=== PATIENT | female | born 1980 | race Caucasian/White ===

== ENCOUNTER 2017-03-13 16:58 | Outpatient (CLI) | payer MEDICAID ==
[2017-03-13 17:21] LABS: HGB - HEMOGLOBIN 13.5 g/dL (12.0-16.0); MEAN CORPUSCULAR HEMOGLOBIN 29.9 pg (27.0-31.0); MEAN CORPUSCULAR HGB CONC 32.9 g/dL (32.0-36.0); MEAN CORPUSCULAR VOLUME 90.8 fL (81.0-99.0); RED BLOOD COUNT 4.51 10^6/uL (4.20-5.40); WHITE BLOOD COUNT 10.4 x10^3/uL (4.8-10.8)
[2017-03-13 17:23] LABS: BILIRUBIN,URINE NEGATIVE (NEGATIVE)
[2017-03-13 17:30] LABS: ALBUMIN/GLOBULIN RATIO 1.6 (1.0-2.2); BILIRUBIN,TOTAL 0.7 mg/dL (0.2-1.0); CALCIUM 8.9 mg/dL (8.5-10.3); CREATININE 0.7 mg/dL (0.4-1.0); POTASSIUM 3.7 mmol/L (3.5-5.0); TOTAL PROTEIN 7.5 g/dL (6.7-8.2)
[2017-03-13 18:03] LABS: WBC,URINE 0-3 /HPF (0-5)
== END 2017-03-13 16:59 | disposition home or self-care (01) ==
LOC: LAB 16:58
PROVIDERS: ATTEND Obstetrics & Gynecology
DX: N92.1 Excessive and frequent menstruation with irregular cycle (principal)
CPT/HCPCS: 36415; 80053; 81001; 84443

== ENCOUNTER 2017-03-21 07:39 | Outpatient (CLI) | payer MEDICAID | END 2017-03-21 07:40 | disposition home or self-care (01) | LOC: DI 07:39 | PROVIDERS: ATTEND Obstetrics & Gynecology | DX: Z53.9 Procedure and treatment not carried out, unspecified reason (principal) ==

== ENCOUNTER 2017-03-21 07:39 | Outpatient (CLI) | payer MEDICAID ==
--- NOTE | 2017-03-21 10:17 | Ultrasound Report ---
TRANSVAGINAL PELVIC ULTRASOUND: 03/21/2017 CLINICAL INDICATION: Pain, leiomyoma. TECHNIQUE: As requested, only transvaginal imaging was performed. FINDINGS: The uterus is anteverted, measuring 10.5 x 7.1 x 6.1 cm. The endometrial echo complex measures 7 mm. The myometrium appears mildly heterogeneous, but no discrete leiomyoma is appreciated. The ovaries are unremarkable, with the right measuring 2.5 x 2.2 x 2.2 cm, and the left measuring 2.8 x 2.6 x 2.2 cm. No free fluid is present. IMPRESSION: MILDLY HETEROGENEOUS MYOMETRIUM, BUT NO DISCRETE LEIOMYOMA IS IDENTIFIED. JOB #: [id number] EXT JOB #: [id number] [facility]
== END 2017-03-21 07:40 | disposition home or self-care (01) ==
LOC: DI 07:39
PROVIDERS: ATTEND Obstetrics & Gynecology
DX: D25.9 Leiomyoma of uterus, unspecified (principal)
CPT/HCPCS: 76830

== ENCOUNTER 2017-05-30 16:19 | Outpatient (CLI) | payer MEDICAID | END 2017-05-30 16:20 | disposition home or self-care (01) | LOC: LAB 16:19 | PROVIDERS: ATTEND Obstetrics & Gynecology | DX: Z22.322 Carrier or suspected carrier of Methicillin resistant Staphylococcus aureus (principal) | CPT/HCPCS: 87640 ==

== ENCOUNTER 2017-06-04 11:30 | Outpatient (CLI) | payer MEDICAID ==
[2017-06-04 19:05] LABS: BASOPHILS # (AUTO) 0.1 10^3/uL (0.0-0.1); BASOPHILS % (AUTO) 1.1 %; EOSINOPHILS # (AUTO) 0.3 10^3/uL (0.0-0.7); HGB - HEMOGLOBIN 13.2 g/dL (12.0-16.0); LYMPHOCYTES # (AUTO) 2.7 10^3/uL (1.5-3.5); LYMPHOCYTES % (AUTO) 28.5 %; MEAN CORPUSCULAR HGB CONC 32.3 g/dL (32.0-36.0); MEAN CORPUSCULAR VOLUME 89.7 fL (81.0-99.0); MEAN PLATELET VOLUME 8.7 fL (7.9-10.8); MONOCYTES # (AUTO) 0.5 10^3/uL (0.0-1.0); MONOCYTES % (AUTO) 5.3 %; NEUTROPHILS % (AUTO) 62.1 %; PLT - PLATELET COUNT 314 10^3/uL (130-450); RED BLOOD COUNT 4.56 10^6/uL (4.20-5.40); RED CELL DISTRIBUTION WIDTH 16.6 % (12.0-15.0); WHITE BLOOD COUNT 9.6 x10^3/uL (4.8-10.8)
[2017-06-04 19:42] LABS: CALCIUM 9.2 mg/dL (8.5-10.3); CARBON DIOXIDE - CO2 23 mmol/L (21-32); CHLORIDE 105 mmol/L (101-111); GLUCOSE 97 mg/dL (70-100); SODIUM 134 mmol/L (135-145)
[2017-06-04 19:44] LABS: HCG,QUALITATIVE BLOOD NEGATIVE
[2017-06-04 19:47] LABS: ALBUMIN 4.7 g/dL (3.2-5.5); ALBUMIN/GLOBULIN RATIO 1.6 (1.0-2.2); ALKALINE PHOSPHATASE 64 IU/L (42-121); ALT ALANINE AMINOTRANSFERASE 18 IU/L (10-60); AST ASPARTATE AMINOTRANSFERASE 15 IU/L (10-42); BILIRUBIN,TOTAL 0.3 mg/dL (0.2-1.0); BUN - BLOOD UREA NITROGEN 13 mg/dL (6-20); CREATININE 0.7 mg/dL (0.4-1.0); GFR - MDRD 94 (>89); TOTAL PROTEIN 7.6 g/dL (6.7-8.2)
== END 2017-06-04 11:31 | disposition home or self-care (01) ==
LOC: LAB.N 11:30
PROVIDERS: ATTEND Obstetrics & Gynecology
DX: N80.9 Endometriosis, unspecified (principal); N92.1 Excessive and frequent menstruation with irregular cycle
CPT/HCPCS: 36415; 80053; 81025; 84703; 85025; 86850; 86900; 86901

== ENCOUNTER 2017-06-05 08:00 | Outpatient (CLI) | payer MEDICAID | END 2017-06-05 08:01 | disposition home or self-care (01) | LOC: LAB.N 08:00 | PROVIDERS: ATTEND Obstetrics & Gynecology | DX: N80.9 Endometriosis, unspecified (principal); N92.1 Excessive and frequent menstruation with irregular cycle | CPT/HCPCS: 86850; 86900; 86901 ==

== ENCOUNTER 2017-06-06 06:14 | Day surgery (SDC) | payer MEDICAID ==
--- NOTE | 2017-06-05 08:21 | PREOP HISTORY & PHYSICAL ---
DATE OF SERVICE: 06/06/2017 Physician: Yonas Cheng MD DATE OF PROCEDURE WILL BE 06/06/2017 DIAGNOSES 1. Menorrhagia and pelvic pain, failing medical treatment. 2. Adenomyosis on ultrasound. 3. Hypertension. INTENDED PROCEDURES 1. Laparoscopic assisted vaginal hysterectomy. 2. Bilateral salpingectomy. 3. Norwood culdoplasty. 4. Cystoscopy. HISTORY: Patient is a 37-year-old 4, para 2-2-0-4 woman who reports excessive menstrual bleeding lasting over 7 days that is quite heavy, inclusive of clots that overwhelm her tampons and pads. She is unable to continue oral contraceptives because of her hypertension. She has used NSAIDs in the past. She notes decreased appetite, lethargy, and cramping around the menses. The menstrual intervals currently are not completely predictable but cluster around every 28 days. She reports severe dysmenorrhea that disrupts her life and work life. February 2017 ultrasound documents a heterogeneous myometrium indicative of adenomyosis. Endometrial stripe is not excessive at only 7 cm. Her pelvic pain is intermittent and described as crampy or colicky. Additionally there is a constant dull aching component. Her last Pap smear in February 2017 was normal. PAST MEDICAL HISTORY: Patient denies chronic disease history other than hypertension. ALLERGIES: NO KNOWN DRUG ALLERGIES. MEDICATIONS: NSAIDs. SOCIAL HISTORY: Former smoker, caffeine consumption, no current drug or alcohol use. FAMILY HISTORY: No inheritable diseases noted. REVIEW OF SYSTEMS CONSTITUTIONAL: Negative. HEENT: Negative. CARDIOVASCULAR: Negative except for hypertension. PULMONARY: Negative. GENITOURINARY: Negative. MUSCULOSKELETAL: Negative. SKIN: Negative. NEUROLOGIC: Negative. PSYCHOLOGIC: Negative. IMMUNE/HEMATOLOGIC: Negative. No easy bleeding tendencies noted. PHYSICAL EXAMINATION GENERAL: Well groomed, pleasant. VITAL SIGNS: Vital signs posted. HEENT: Supple neck. No thyromegaly. LUNGS: Clear to auscultation. CARDIAC: Regular, no murmur, no gallop. GASTROINTESTINAL: Nondistended. No organomegaly. Obese. Lower quadrant tenderness noted in the right and left lower quadrants. Incision - Pfannenstiel well healed. GENITOURINARY: External genitalia normal. VAGINA: No blood or discharge. CERVIX: Mild cervical motion tenderness. No lesions or cervicitis. Prior cultures negative. UTERUS: Bulky, 6 to 8-week size, tender. ADNEXA: Mobile, nontender, normal size. MUSCULOSKELETAL: Negative for calf tenderness. Normal movement. NEUROLOGIC: Grossly intact. SKIN: Negative for lesions or rash. LABORATORY DATA: Pending. Prior TSH was normal at 0.94. ASSESSMENT AND PLAN: Patient has had heavy menses that last over 7 days and are life-altering. In addition, she notes severe dysmenorrhea and pelvic pain. Ultrasound demonstrates a heterogeneous myometrium suggestive of adenomyosis. Adenomyosis explains her menorrhagia and severe dysmenorrhea. OCPs are contraindicated due to her hypertension. She is a candidate for hysterectomy, the definitive treatment of adenomyosis. She has been counseled on risks and benefits on two occasions. PLAN: Laparoscopic assisted vaginal hysterectomy with bilateral salpingectomy. We will spare the ovaries if at all possible. Postop cystoscope will be used to look for cystitis, interstitial cystitis as possible explanations of her pain. TD: 06/04/2017 11:40 [facility]
[2017-06-06] MEDS ORDERED: ceFAZolin 2 GM/50 ML 2 GM/50 ML BAG IV ONE (06:29)
[2017-06-06 06:33] VITALS: BP 125/54
[2017-06-06] MEDS ORDERED: LACTATED RINGERS 1,000 ML IV ONE ×2 (06:48→09:11)
[2017-06-06] MEDS ORDERED: PHENYLEPHRINE 50 MG/5 ML VIAL IV ONE (08:35)
[2017-06-06] MEDS ORDERED: LIDOCAINE-MPF 2% 5 ML VIAL IM ONE (08:35)
[2017-06-06] MEDS ORDERED: GLYCOPYRROLATE 1 MG/5 ML VIAL IVP ONE (08:35)
[2017-06-06] MEDS ORDERED: ONDANSETRON 4 MG/2 ML VIAL IVP ONE (08:35)
[2017-06-06] MEDS ORDERED: ROCURONIUM 50 MG/5 ML VIAL IVP ONE (08:35)
[2017-06-06] MEDS ORDERED: NEOSTIGMINE 1 MG/1 ML 10 ML MDV IVP ONE (08:35)
[2017-06-06] MEDS ORDERED: PROPOFOL 200 MG/20 ML VIAL IVP ONE (08:35)
[2017-06-06] MEDS ORDERED: ACETAMINOPHEN 1,000 MG/100 ML 100 ML IV ONE (08:35)
[2017-06-06] MEDS ORDERED: fentaNYL 100 MCG/2 ML VIAL IVP ONE (08:35)
[2017-06-06] MEDS ORDERED: MIDAZOLAM 2 MG/2 ML VIAL IVP ONE (08:35)
[2017-06-06] MEDS ORDERED: KETOROLAC 30 MG/ML VIAL IVP ONE (08:35)
[2017-06-06] MEDS ORDERED: DEXAMETHASONE 4 MG/ML VIAL IVP ONE (08:35)
[2017-06-06] MEDS ORDERED: BUPIVACAINE 0.25% PF 30 ML VIAL SUBQ ONE ×2 (09:00)
[2017-06-06] MEDS ORDERED: LIDOCAINE 1%-EPI 1:100000 20 ML MDV SUBQ ONE ×2 (09:01)
--- NOTE | 2017-06-06 09:47 | OPERATIVE REPORT ---
Operative Report - General Procedure Date: 06/06/17 Planned Procedure: LAVH; bilateral salpingectomy; cystoscopy Pre-Op Diagnosis: Morbid obesity; ultrasound consistent with adenomyosis; menorrhagia and pe Procedure Performed: Laparoscopic assisted vaginal hysterectomy with bilateral salpingectomy; cystoscopy Post Op Diagnosis: Await pathology; same as above - Procedure Note Primary Surgeon: Yonas Cheng MD FACOG Secondary Surgeon: Haydee Ravi DO FACOG Anesthesia Provider: Inderjit Christopher CRNA Anesthesia Technique: General ET tube Pathology: Uterus and tubes IV Fluids (mL): 1,400 Estimated Blood Loss (mL): 15 Urine Output (mL): 400 Drain/Tube Type: Other (Cid catheter) Complications: None
[2017-06-06] MEDS ORDERED: ONDANSETRON 4 MG/2 ML VIAL ONE (10:16)
[2017-06-06] MEDS: fentaNYL 100 MCG/2 ML VIAL ONE ×2 (10:18→10:40)
--- NOTE | 2017-06-06 10:51 | OPERATIVE REPORT ---
DATE OF SERVICE: 06/06/2017 Physician: Yonas Cheng MD DATE OF SURGERY: 06/06/2017 PREOPERATIVE DIAGNOSES 1. Menorrhagia. 2. Pelvic pain. 3. Ultrasound consistent with adenomyosis. 4. Enlarged uterus, 10-12 week Size. 5. Morbid obesity. POSTOPERATIVE DIAGNOSES 1. Menorrhagia. 2. Pelvic pain. 3. Ultrasound consistent with adenomyosis. 4. Enlarged uterus, 10-12 week Size. 5. Morbid obesity. 6. Awaiting pathology. NAME OF PROCEDURE: Laparoscopic assisted hysterectomy with bilateral salpingectomy; modified Norwood culdoplasty; cystoscopy. SURGEON: Yonas Cheng MD, FACOG, FICS SECOND SURGEON: Haydee Ravi DO, FACOG ANESTHESIOLOGIST: Inderjit Christopher CRNA ANESTHESIA: General, ET tube placed. PATHOLOGY: Uterus and tubes sent intact to Pathology. INTRAVENOUS FLUIDS: 1400. ESTIMATED BLOOD LOSS: Minimal, 15 mL URINE OUTPUT: 400, clear. DRAINS: Cid catheter. COMPLICATIONS: None. FINDINGS 1. The patient has a morbidly obese body habitus with a short waist. Her BMI is 38.3. External genitalia has no lesions. Vagina: Minimal cystocele, grade 1 rectocele. Cervix was stenotic and was difficult to negotiate. No cervicitis evident. Uterus is enlarged to 10-12 week size, boggy. Uncertain if multiple fibroids or adenomyosis is present. Tubes appear to be normal. Ovaries are normal with cystic activity evident. A survey of the pelvis finds no obvious peritoneal implants or endometriosis. 2. Postoperative cystoscopy reveals a normal appearing bladder mucosa. There is some metaplasia in the trigone. There is free flow of yellow urine from both the right and left ureteral orifices. TECHNIQUE: Prior to the surgery, I met with the patient and her significant other to discuss her pathology, its natural history, and laparoscopic hysterectomy. She is aware of the surgical risks to include blood loss, transfusion, infection, and damage to urinary tract or abdominal viscera. She understands due to her body habitus and her prior surgical history (C-sections x2) that this may be a difficult procedure, raising a chance of complication. She understands that a laparotomy may be necessary. Informed consent paperwork was signed and all questions answered. The patient was brought to the operating room, placed in supine position for administration of general anesthesia. She was uneventfully induced and intubated. She was prepped and draped in the customary sterile fashion. A timeout briefing was done per protocol. Visiport bariatric trocars were necessary. A small incision was placed under the umbilical skin fold, and the 5 mm bariatric trocar uneventfully placed into the abdomen. The abdomen was then insufflated with 15-12 mm pressure CO2. Under direct visualization, right and left lower quadrant bariatric trocars were placed. The patient was placed in Trendelenburg, and the pelvis assessed and photographed. Starting on the left side, the tube was tented superiorly and medially to reveal the mesentery. The mesentery was desiccated and divided using LigaSure in a sequential fashion down to the area of the cornea. Next, the utero-ovarian ligament and round ligament were desiccated and divided. We developed anterior and posterior broad ligament with LigaSure. In the bladder flap area, there was extensive scarification. The adhesions were sequentially divided with LigaSure. The left uterine vascular vessels were isolated, doubly desiccated, and divided with LigaSure. The posterior branch of the uterine artery oozed and was desiccated again to ensure complete hemostasis. This process was repeated on the right hand side uneventfully. Time was taken to dissect away the bladder flap and clear the dense adhesions. At this point, we converted to the vaginal phase. Abdomen was desufflated of CO2 gas. The patient was placed in a high dorsal lithotomy position. A weighted retractor was placed. The cervical barrel was injected with small aliquots of 1% lidocaine with epinephrine. The cervical barrel then was circumscribed with a Bovie pencil. Anterior and posterior compartment was developed with sharp dissection. Anterior compartment was uneventfully entered. Shortly thereafter, the posterior compartment was entered. A Nguyễn weighted retractor then was placed. The base of the uterosacral ligaments on both sides were clamped, transected and transfixed with 0 Vicryl. We continued our dissection up the uterosacral ligament in a stepwise fashion, clamping transection and transfixion. The uterine vessels were encountered, clamped, and suture ligated. At this point, the uterus was mobile and uneventfully slid through the colpotomy incision. The pelvic peritoneum was purse-stringed with a stitch of 2-0 Vicryl. The uterosacral ligament bundles were tied together on each side to provide a firm band of support. In turn, portions of each suture were passed through the posterior vagina to firmly tack it into the uterosacral ligaments. To complete the Norwood repair, the uterosacral ligaments were brought together in the midline using the previously placed 0 Vicryl. Vaginal cuff was closed with a running stitch of #1 chromic in a vertical manner. All sponge, needle and instrument counts were confirmed as correct at that time. Attention was brought back to the laparoscopic phase. The abdomen was reinsufflated with CO2 gas at 12 mm. All operative sites were inspected and found to be hemostatically secure. All gas was then drained from the abdomen. Trocars were removed. Skin wounds were closed with subcuticular stitches of 4-0 Monocryl and dressed with Dermabond. Attention was turned to cystoscopy. A 30-degree video cystoscope was introduced through the urethra. The bladder was inspected in a systematic fashion. There were no incursions into the bladder and both ureters were functional. The cystoscope was withdrawn and the Cid reinserted. The patient was uneventfully awakened from general anesthesia and taken to the recovery room in good condition. She will remain overnight on extended stay for anxiety and pain control. Anticipate discharge tomorrow. MEDICATIONS PREOPERATIVELY: Two grams of Ancef given IV piggyback. TD: 06/06/2017 10:50
[2017-06-06] MEDS ORDERED: ONDANSETRON 4 MG/2 ML VIAL IVP PRN (11:53)
[2017-06-06] MEDS ORDERED: ALPRAZolam 0.25 MG TABLET PO SCH (12:00)
[2017-06-06] MEDS: IBUPROFEN 600 MG TABLET PO SCH ×3 (12:08→23:58)
[2017-06-06] MEDS: LISINOPRIL 5 MG TABLET PO SCH (12:08)
[2017-06-06] MEDS: LACTATED RINGERS 1,000 ML IV SCH ×2 (12:09→20:04)
[2017-06-06] MEDS: HYDROcod/ACETAM 5/325 MG TABLET PO PRN ×2 (13:14→16:32)
[2017-06-06] MEDS ORDERED: HYDROcod/ACETAM 5/325 MG TABLET PO PRN (16:12)
[2017-06-06] MEDS ORDERED: ALPRAZolam 0.25 MG TABLET PO PRN (16:13)
[2017-06-06] MEDS ORDERED: PROCHLORPERAZINE 5 MG TABLET PO PRN ×2 (19:08→19:17)
[2017-06-06] MEDS ORDERED: POLYETHYLENE GLYCOL 3350 17 GM PACKET PO PRN (19:09)
[2017-06-06] MEDS ORDERED: MAGNESIUM HYDROXIDE 2,400 MG/30 ML UDC PO PRN (19:10)
[2017-06-07] MEDS: LACTATED RINGERS 1,000 ML IV SCH (04:22)
[2017-06-07] MEDS: IBUPROFEN 600 MG TABLET PO SCH (06:14)
[2017-06-07] MEDS: LISINOPRIL 5 MG TABLET PO SCH (07:49)
--- NOTE | 2017-06-07 08:25 | PROVIDER PROGRESS NOTE ---
Subjective - General Procedure Date: 06/06/17 Post Op Days: 1 - Review of Systems Wound/Incisions: positive: Healing well General: positive: No symptoms HEENT: positive: No symptoms Pulmonary: positive: No symptoms Cardiovascular: positive: No symptoms Gastrointestinal: positive: No symptoms Genitourinary: positive: No symptoms Musculoskeletal: positive: No symptoms Skin: positive: No symptoms Psychiatric: positive: Anxiety (Patient feels better about her anxiety state. She feels ready to go home.) Objective - Patient Data Weight: Weight 06/05/17 06/06/17 06/07/17 23:59 23:59 23:59 Weight (kg) 89 kg Intake & Output: Intake and Output Totals x24h 06/05/17 06/06/17 06/07/17 23:59 23:59 23:59 Intake Total 500 Output Total 500 Balance 0 - Current Medications Current Medications: Current Medications Generic Name Dose Route Start Last Admin Trade Name Freq PRN Reason Stop Dose Admin Acetaminophen/Hydrocodone Bitart 2 tab 06/06/17 16:12 06/07/17 02:03 Pickens 5/325 PO 06/09/17 11:54 1 tab Q6HR PRN Administration PAIN Alprazolam 0.5 mg 06/06/17 16:13 06/06/17 17:52 Xanax PO 06/09/17 16:12 0.5 mg Q6HR PRN Administration Anxiety Lactated Ringer's 1,000 mls @ 125 mls/hr 06/06/17 12:00 06/07/17 04:22 Lr IV Not Given .Q8H TASIA Ibuprofen 600 mg 06/06/17 12:00 06/07/17 06:14 Motrin PO 600 mg Q6HR TASIA Administration Lisinopril 10 mg 06/06/17 12:00 06/07/17 07:49 Zestril PO 10 mg DAILY TASIA Administration Prochlorperazine Maleate 10 mg 06/06/17 19:17 06/06/17 19:46 Compazine PO 10 mg Q6HR PRN Administration Nausea / Vomiting Exam - Exam Vital Signs: Vital Signs (72 hours) 06/06/17 06/06/17 06/06/17 06:25 09:50 09:55 Temperature 97.7 F Heart Rate [ 99 Apical] Respiratory 20 Rate Blood Pressure 125/54 L [Brachial artery] O2 Saturation 100 100 100 06/06/17 06/06/17 06/06/17 10:00 10:10 10:20 Temperature Heart Rate [ Apical] Respiratory Rate Blood Pressure [Brachial artery] O2 Saturation 99 100 100 06/06/17 10:35 Temperature Heart Rate [ Apical] Respiratory Rate Blood Pressure [Brachial artery] O2 Saturation 98 General: Alert, Oriented x3 HEENT: Mucous membr. moist/pink Lungs: Clear to auscultation Cardiovascular: Regular rate, No murmurs Abdomen: Normal bowel sounds, No tenderness Extremities: No edema Skin: No significant lesion Neurological: Normal gait, Normal speech Psych/Mental Status: Mood NL Assessment/Plan - Assessment/Plan Assessment: Patient was originally anxious post surgery due to her known generalized anxiety disorder. With Xanax and time with the reassurance patient feels better. Her pain is under control with Motrin alone. She has showered and done normal self-care activities without difficulty. Overall she is ready for discharge. Plan: Plan * Discharge home today * Wound care and self-care instructions given. * Warning signs reviewed (fever,'s foul discharge, abdominal pain, bleeding with clots) * Prescriptions for Motrin Pickens and Colace already written * Await pathology * Wound check in 2 weeks
== END 2017-06-07 09:41 | disposition home or self-care (01) ==
LOC: SDS 06:14 → OBS 07:30 → SDS 06-07 09:41
PROVIDERS: ATTEND Obstetrics & Gynecology
PROC: 0UT9FZZ Resection of Uterus, Via Natural or Artificial Opening With Percutaneous Endoscopic Assistance (ICD-10-PCS; 2017-06-06)
PROC: 0UQF0ZZ Repair Cul-de-sac, Open Approach (ICD-10-PCS; 2017-06-06)
PROC: 0UT7FZZ Resection of Bilateral Fallopian Tubes, Via Natural or Artificial Opening With Percutaneous Endoscopic Assistance (ICD-10-PCS; principal; 2017-06-06 07:30)
DX: N92.1 Excessive and frequent menstruation with irregular cycle (principal); N80.0 Endometriosis of uterus; D25.9 Leiomyoma of uterus, unspecified; E66.01 Morbid (severe) obesity due to excess calories; Z68.38 Body mass index [BMI] 38.0-38.9, adult; I10 Essential (primary) hypertension; Z87.891 Personal history of nicotine dependence
CPT/HCPCS: 57268; 58554; A9270; J0131; J0690; J7120

== ENCOUNTER 2019-06-13 15:53 | Outpatient (CLI) | payer MEDICAID ==
--- NOTE | 2019-06-14 22:55 | XRAY Report ---
Reason: CHRONIC BILATERAL FOOT AND ANKLE PAIN Procedure Date: 06/13/2019 Accession Number: [id number] / [id number] Procedure: XR - Foot 3 View BILAT CPT Code: Final Report FULL RESULT: EXAMS: 1. Right Foot Radiography 2. Left Foot Radiography EXAM DATE: 06/13/2019 05:08 PM. CLINICAL HISTORY: CHRONIC BILATERAL FOOT AND ANKLE PAIN. COMPARISON: None. TECHNIQUE: 3 views each foot. FINDINGS: Right: Bones: Small plantar and superior calcaneal osteophytes. No fractures or bone lesions. Joints: No dislocation seen. Joints appear intact. Soft Tissues: Grossly unremarkable. Left: Bones: Small plantar and superior calcaneal osteophytes. No fractures or bone lesions. Joints: No dislocation seen. Joints appear intact. Soft Tissues: Grossly unremarkable. IMPRESSION: 1. No acute abnormality seen bilaterally. 2. Small plantar and superior calcaneal osteophytes. RADIA
--- NOTE | 2019-06-14 22:56 | XRAY Report ---
Reason: CHRONIC BILATERAL FOOT AND ANKLE PAIN Procedure Date: 06/13/2019 Accession Number: [id number] / [id number] Procedure: XR - Ankle 3 View BILAT CPT Code: Final Report FULL RESULT: EXAMS: 1. Right Ankle Radiography 2. Left Ankle Radiography EXAM DATE: 06/13/2019 05:08 PM. CLINICAL HISTORY: CHRONIC BILATERAL FOOT AND ANKLE PAIN. COMPARISON: None. TECHNIQUE: 3 views each ankle. FINDINGS: Right Ankle: Bones: Small plantar and superior calcaneal osteophytes. No fractures or bone lesions. Joints: No dislocation seen. Ankle mortise appears intact. No joint effusion identified. Soft Tissues: Grossly unremarkable. Left Ankle: Bones: Small plantar and superior calcaneal osteophytes. No fractures or bone lesions. Joints: No dislocation seen. Ankle mortise appears intact. No joint effusion identified. Soft Tissues: Grossly unremarkable. IMPRESSION: 1. No acute abnormality seen bilaterally. RADIA
== END 2019-06-13 15:54 | disposition home or self-care (01) ==
LOC: DI 15:53
PROVIDERS: ATTEND Podiatrist
DX: M77.32 Calcaneal spur, left foot (principal); M77.31 Calcaneal spur, right foot; M25.571 Pain in right ankle and joints of right foot; M25.572 Pain in left ankle and joints of left foot

== ENCOUNTER 2021-03-22 08:00 | Outpatient (CLI) | payer MEDICAID ==
[2021-03-22 18:34] LABS: BASOPHILS # (AUTO) 0.1 10^3/uL (0.0-0.1); BASOPHILS % (AUTO) 0.5 %; EOSINOPHILS # (AUTO) 0.8 10^3/uL (0.0-0.7); EOSINOPHILS % (AUTO) 8.2 %; HCT - HEMATOCRIT 40.5 % (37.0-47.0); HGB - HEMOGLOBIN 13.4 g/dL (12.0-16.0); LYMPHOCYTES # (AUTO) 2.4 10^3/uL (1.5-3.5); MEAN CORPUSCULAR HEMOGLOBIN 32.4 pg (27.0-31.0); MEAN CORPUSCULAR HGB CONC 33.1 g/dL (32.0-36.0); MEAN CORPUSCULAR VOLUME 98.1 fL (81.0-99.0); MEAN PLATELET VOLUME 10.2 fL (7.9-10.8); MONOCYTES # (AUTO) 0.7 10^3/uL (0.0-1.0); MONOCYTES % (AUTO) 6.8 %; NEUTROPHILS # (AUTO) 5.7 10^3/uL (1.5-6.6); NEUTROPHILS % (AUTO) 59.2 %; PLT - PLATELET COUNT 333 10^3/uL (130-450); RED BLOOD COUNT 4.13 10^6/uL (4.20-5.40); RED CELL DISTRIBUTION WIDTH 13.3 % (12.0-15.0); WHITE BLOOD COUNT 9.6 x10^3/uL (4.8-10.8)
[2021-03-22 18:51] LABS: ALBUMIN 4.3 g/dL (3.2-5.5); ALBUMIN/GLOBULIN RATIO 1.5 (1.0-2.2); BILIRUBIN,TOTAL 0.4 mg/dL (0.2-1.0); CALCIUM 9.4 mg/dL (8.5-10.3); CREATININE 0.8 mg/dL (0.4-1.0); POTASSIUM 4.2 mmol/L (3.5-5.0); TOTAL PROTEIN 7.2 g/dL (6.7-8.2)
[2021-03-22 19:09] LABS: THYROID STIMULATING HORMONE 1.07 uIU/mL (0.34-5.60)
== END 2021-03-22 23:59 ==
LOC: LAB.N 08:00
PROVIDERS: ATTEND Family Medicine
DX: I10 Essential (primary) hypertension (principal)
CPT/HCPCS: 36415; 80053; 84443; 85025